=== PATIENT | female | born 1980 ===

== ENCOUNTER 2017-02-14 18:10 | Emergency (ER) | payer OTHER ==
--- NOTE | ~2017-02-14 | ER ---
PATIENT'S NAME: ISABELLA ARAUJO [facility] AGE: 36 Y [address] ROOM: [place] [address] LOCATION: [facility] ADMIT DATE: 02/14/2017 ER/Outpatient Report DISCHARGE DATE: 02/14/2017 FAMILY PHYSICIAN: Felton Bah MD ATTENDING PHYSICIAN: Mary Heath HISTORY OF PRESENT ILLNESS: A 36-year-old female, sent in by [facility] with head injury. The patient was working at [employer] and pulling boxes off the shelf when she pulled it and a box hit her in the lip first and then a second box fell and hit her in the head. The patient denies any LOC, but says she was nauseous at that time and has not been acting right since then. She reports that the right side of her face feels numb and tingly as well. She denies any neck pain, though she just says it feels little bit stiff like a muscular stiffness. She denies any real headache, otherwise, other than this numbness and being slightly dazed. No other complaints at this time. PAST MEDICAL HISTORY: None. PAST SURGICAL HISTORY: . SOCIAL HISTORY: She does not smoke. No use of any drugs. She drinks socially. She works at [employer]. MEDICATIONS: None. ALLERGIES: NONE. ROS: Reviewed by me and negative with the exception of those discussed in the HPI. PHYSICAL EXAMINATION: VITAL SIGNS: She is 5 feet 3 inches, weight is 53.8 kilos, blood pressure is 113/76, heart rate 57, respiratory rate 16, temperature is 97.6, SpO2 is 100% on room air. GCS is 15. GENERAL: The patient is not in any acute distress. She is alert, interactive, speaking in full sentences, smiling. She does not appear altered or dazed to me. She is not actively vomiting or retching. She is A and O x4. HEENT: Pupils are equal and reactive to light. She has no photosensitivity. GCS is 15. She has no evidence of facial or head trauma. No swelling of her PATIENT'S NAME: ISABELLA ARAUJO [facility] AGE: 36 Y [address] ROOM: [place] [address] LOCATION: [facility] ADMIT DATE: 02/14/2017 ER/Outpatient Report DISCHARGE DATE: 02/14/2017 FAMILY PHYSICIAN: Felton Bah MD ATTENDING PHYSICIAN: Mary Heath face, no laceration, or abrasion. She does not have any periorbital hematoma or subconjunctival hemorrhage. Negative bowel signs. No nasal bone tenderness. She has no C-spine tenderness. She subjectively reports diminished sensation on the right side of her face including her forehead though. No TLS spine tenderness. SKIN: Warm and dry. NEURO: She is A and O x4. She has no pronator drift. Strength bilateral upper extremities are 5/5 and lower extremities are 5/5 as well. EMERGENCY ROOM COURSE: We did a CT head, which was read as negative for any acute fracture or bleed. This was discussed with the patient. I told to take ibuprofen, Tylenol at rest and follow up with her primary care doctor as needed. IMPRESSION: Head injury. MD CHELSIE GUTIERREZW/modl /[id number] d: 02/15/17 0436 t: 02/15/17 1841, OUTPATIENT REPORT
== END 2017-02-14 19:18 | disposition disaster alternative care site (69) ==
LOC: GACC 18:10
DX: S09.90XA Unspecified injury of head, initial encounter (principal); W20.8XXA Other cause of strike by thrown, projected or falling object, initial encounter; Y99.0 Civilian activity done for income or pay; Y92.89 Other specified places as the place of occurrence of the external cause